=== PATIENT | female | born 1980 | race Caucasian/White ===

== ENCOUNTER 2020-08-26 21:15 | Emergency (ER) | payer OTHER ==
[2020-08-26 21:30] VITALS: PULSE 90; TEMP 99; BMI 20.5
[2020-08-26 22:46] VITALS: BP 146/107
== END 2020-08-26 22:47 | disposition home or self-care (01) ==
LOC: FER 21:15
DX: R60.0 Localized edema (principal)
CPT/HCPCS: 93971-TC; 99284-25

== ENCOUNTER 2022-02-28 07:18 | Emergency (ER) | payer OTHER ==
[2022-02-28 07:24] VITALS: BP 148/104; PULSE 85; TEMP 98.4; BMI 20.5
[2022-02-28] MEDS ORDERED: LIDOCAINE VISCOUS 2% ORAL/TOP 15 ML UNIT-DOSE CUP MM ONE (07:42)
[2022-02-28] MEDS ORDERED: LIDOCAINE VISCOUS 2% ORAL/TOP 15 ML UNIT-DOSE CUP ONE (07:48)
[2022-02-28 08:25] LABS: HEMATOCRIT 37.8 % (32.4-45.2); HEMOGLOBIN 13.3 G/dL (10.7-15.3); MCH 33.7 pg (25.7-33.7); MCHC 35.2 g/dl (32.0-36.0); MEAN CELL VOLUME 95.6 fl (80-96); MEAN PLT VOLUME 8.3 fl (7.5-11.1); PLATELET COUNT 253.1 10^3/uL (134-434); RBC 3.95 10^6/uL (3.60-5.2); RDW 13.4 % (11.6-15.6); WHITE BLOOD COUNT 5.2 10^3/uL (4.0-10.8)
[2022-02-28 08:29] LABS: ALBUMIN 3.8 g/dl (3.4-5.0); BILIRUBIN,TOTAL 0.7 mg/dl (0.2-1); CALCIUM 8.6 mg/dl (8.5-10); CREATININE 0.7 mg/dl (0.55-1.3); TOT PROT 6.2 g/dl (6.4-8.2)
== END 2022-02-28 11:28 | disposition home or self-care (01) ==
LOC: FER 07:18
DX: R07.0 Pain in throat (principal)
CPT/HCPCS: 36415; 70491-TC; 80053; 85025; 93005; 99285-25; Q9967